=== PATIENT | female | born 1955 | race American Indian/Alaskan Native ===

== ENCOUNTER 2017-10-17 20:45 | Emergency (ER) | payer SELFPAY ==
[2017-10-17 21:36] LABS: Hematocrit 39.7 % (30.3-42.9); Hemoglobin 13.3 gm/dl (10.1-14.3); Mean Corpuscular HGB Conc 34 % (30-34); Mean Corpuscular Hemoglobin 29 pg (28-32); Mean Corpuscular Volume 86 fl (79-97); Platelet Count 288 K/mm3 (140-440); Red Blood Count 4.62 M/mm3 (3.65-5.03)
[2017-10-17 21:48] LABS: BUN/Creatinine Ratio 21; Blood Urea Nitrogen 17 mg/dL (7-17); Calcium 9.5 mg/dL (8.4-10.2); Hemolysis Index 8
--- NOTE | 2017-10-17 21:54 | XRay Report ---
FINAL REPORT EXAM: XR CHEST ROUTINE 2V HISTORY: persistent dry cough TECHNIQUE: Frontal and lateral chest x-ray. PRIORS: None. FINDINGS: Patient rotated to the left. Cardiac and mediastinal silhouette within normal limits. Lungs are normally expanded, with mildly increased interstitial markings and peribronchial thickening centrally. No focal consolidation, pleural effusions or apparent pneumothorax. Degenerative change in the thoracic spine. IMPRESSION: 1. Findings which may represent nonspecific postinflammatory change or bronchitis versus interstitial lung disease of uncertain etiology or chronicity. Correlate clinically. 2. No acute consolidation.
[2017-10-17] MEDS ORDERED: TESSALON PERLES PO ONE (22:54)
[2017-10-17] MEDS ORDERED: NORCO 5/325 PO ONE (22:55)
[2017-10-17] MEDS ORDERED: ZOFRAN ODT PO ONE (22:55)
--- NOTE | 2017-10-17 23:25 | Emergency Department Report ---
ED General Adult HPI - General Chief complaint: Weakness Stated complaint: LEGS SWELLING, COUGH Time Seen by Provider: 10/17/17 22:13 Source: patient Mode of arrival: Ambulatory Limitations: No Limitations - History of Present Illness Initial comments: Patient presents to emergency department with cough 1 week. Patient denies anything making her cough better or worse. Patient denies fever or chest pain. Patient does endorse diffuse joint pain. There are no other associated symptoms. -: Sudden Radiation: non-radiation Severity scale (0 -10): 7 Consistency: intermittent Improves with: none Worsens with: none Associated Symptoms: denies other symptoms Treatments Prior to Arrival: none - Related Data Previous Rx's Medication Instructions Recorded Last Taken Type ALBUTEROL Inhaler [ProAir HFA 2 puff IH QID PRN #1 inhalation 10/17/17 Unknown Rx Inhaler] Hydrocodone/Chlorphen P-Stirex 10 ml PO BID PRN #180 trent.er.12h 10/17/17 Unknown Rx [Tussionex Pennkinetic Susp] Prednisone [predniSONE 10 mg 10 mg PO .TAPER #1 tab.ds.pk 10/17/17 Unknown Rx (6-Day Pack, 21 Tabs)] Allergies Allergy/AdvReac Type Severity Reaction Status Date / Time No Known Allergies Allergy Unverified 10/17/17 21:07 ED Review of Systems ROS: Stated complaint: LEGS SWELLING, COUGH Other details as noted in HPI Constitutional: denies: chills, fever Eyes: denies: eye pain, eye discharge, vision change ENT: denies: ear pain, throat pain Respiratory: cough. denies: shortness of breath, wheezing Cardiovascular: denies: chest pain, palpitations Endocrine: no symptoms reported Gastrointestinal: denies: abdominal pain, nausea, diarrhea Genitourinary: denies: urgency, dysuria, discharge Musculoskeletal: denies: back pain, joint swelling, arthralgia Skin: denies: rash, lesions Neurological: denies: headache, weakness, paresthesias Psychiatric: denies: anxiety, depression Hematological/Lymphatic: denies: easy bleeding, easy bruising ED Past Medical Hx - Past Medical History Previous Medical History?: Yes Hx Hypertension: Yes - Surgical History Past Surgical History?: No - Social History Smoking Status: Never Smoker Substance Use Type: None - Medications Home Medications: Home Medications Medication Instructions Recorded Confirmed Last Taken Type ALBUTEROL Inhaler [ProAir HFA 2 puff IH QID PRN #1 inhalation 10/17/17 Unknown Rx Inhaler] Hydrocodone/Chlorphen P-Stirex 10 ml PO BID PRN #180 trent.er.12h 10/17/17 Unknown Rx [Tussionex Pennkinetic Susp] Prednisone [predniSONE 10 mg 10 mg PO .TAPER #1 tab.ds.pk 10/17/17 Unknown Rx (6-Day Pack, 21 Tabs)] ED Physical Exam - General Limitations: No Limitations General appearance: alert, in no apparent distress - Head Head exam: Present: atraumatic, normocephalic - Eye Eye exam: Present: normal appearance, PERRL, EOMI - ENT ENT exam: Present: mucous membranes moist - Neck Neck exam: Present: normal inspection - Respiratory Respiratory exam: Present: normal lung sounds bilaterally. Absent: respiratory distress, wheezes, rales, rhonchi - Cardiovascular Cardiovascular Exam: Present: regular rate, normal rhythm. Absent: systolic murmur, diastolic murmur, rubs, gallop - GI/Abdominal GI/Abdominal exam: Present: soft, normal bowel sounds. Absent: distended, tenderness - Extremities Exam Extremities exam: Present: normal inspection - Back Exam Back exam: Present: normal inspection - Neurological Exam Neurological exam: Present: alert, oriented X3, CN II-XII intact, motor sensory deficit - Psychiatric Psychiatric exam: Present: normal affect, normal mood - Skin Skin exam: Present: warm, dry, intact, normal color. Absent: rash ED Course Vital Signs 10/17/17 10/17/17 10/17/17 20:52 21:10 22:07 Temperature 99.4 F 99.4 F Pulse Rate 83 83 Respiratory 18 18 Rate Blood Pressure 131/76 Blood Pressure 131/76 [Right] O2 Sat by Pulse 98 98 97 Oximetry 10/17/17 10/17/17 10/17/17 22:16 22:30 22:46 Temperature Pulse Rate 73 73 81 Respiratory 18 16 17 Rate Blood Pressure Blood Pressure [Right] O2 Sat by Pulse 96 97 99 Oximetry 10/17/17 23:00 Temperature Pulse Rate 74 Respiratory 19 Rate Blood Pressure 130/83 Blood Pressure [Right] O2 Sat by Pulse 98 Oximetry ED Medical Decision Making - Lab Data Result diagrams: 10/17/17 21:23 10/17/17 21:23 - Medical Decision Making Discussed results with patient and her daughter. Critical care attestation.: If time is entered above; I have spent that time in minutes in the direct care of this critically ill patient, excluding procedure time. ED Disposition Clinical Impression: Bronchitis Disposition: DC-01 TO HOME OR SELFCARE Is pt being admited?: No Does the pt Need Aspirin: No Condition: Stable Instructions: Chronic Bronchitis (ED), Acute Bronchitis (ED) Additional Instructions: Return if worse Prescriptions: ALBUTEROL Inhaler [ProAir HFA Inhaler] 2 puff IH QID PRN #1 inhalation PRN Reason: Shortness Of Breath Hydrocodone/Chlorphen P-Stirex [Tussionex Pennkinetic Susp] 10 ml PO BID PRN # 180 trent.er.12h PRN Reason: Cough Prednisone [predniSONE 10 mg (6-Day Pack, 21 Tabs)] 10 mg PO .TAPER #1 tab.ds.pk Referrals: PRIMARY CARE, [Primary Care Provider] - 3-5 Days [facility] [Outside] - 3-5 Days [facility] [Outside] - 3-5 Days Time of Disposition: 23:25
[2017-10-17 23:33] LABS: Anisocytosis 1+; Band Neutrophils # (Manual) 0.1 K/mm3; Basophils % (Manual) 0 % (0.0-1.8); Platelet Estimate Consistent w Auto; Total Cells Counted 100
[2017-10-17 23:44] VITALS: BP 122/73
== END 2017-10-17 23:42 | disposition home or self-care (01) ==
LOC: ED 20:45
DX: J40 Bronchitis, not specified as acute or chronic (principal); I10 Essential (primary) hypertension
CPT/HCPCS: 36415; 71046; 80048; 83880; 85007; 85025; 93005; 93010; 99284; Q0162